=== PATIENT | female | born 1980 | race Caucasian/White ===

== ENCOUNTER 2020-10-30 05:25 | Inpatient (IN) | payer OTHER, SELFPAY ==
[~2020-10-30] VITALS: Ht 154.9 cm; Wt 88.5 kg
[2020-10-30] MEDS ORDERED: CEFAZOLIN 2 GM IVPB PREMIX 50 ML IV ONE (06:00)
[2020-10-30] MEDS ORDERED: LR 1,000 ML IV SCH ×2 (06:00→12:30)
[2020-10-30 06:20] LABS: BASOPHILS # (AUTO) 0.1 K/uL (0.0-0.2); BASOPHILS % (AUTO) 1.9 % (0.0-2.0); EOSINOPHILS % (AUTO) 0.8 % (0.0-4.0); HEMATOCRIT 34.5 % (36-48); HEMOGLOBIN 11.8 g/dL (12.0-16.0); LYMPHOCYTES # (AUTO) 1.3 K/uL (1.0-5.5); LYMPHOCYTES % (AUTO) 24.7 % (20.5-51.5); MEAN CORPUSCULAR HEMOGLOBIN 28 pg (27-31); MEAN CORPUSCULAR HGB CONC 34 % (32-36); MEAN CORPUSCULAR VOLUME 80 fL (79.0-98.0); MONOCYTES # (AUTO) 0.5 K/uL (0.0-1.0); MONOCYTES % (AUTO) 9.3 % (1.7-9.3); NEUTROPHILS # (AUTO) 3.2 K/uL (1.8-7.7); NEUTROPHILS % (AUTO) 63.3 % (40.0-70.0); PLATELET COUNT (AUTO) 257 K/uL (130-430); RED CELL DISTRIBUTION WIDTH 17.4 % (9.0-15.0); WHITE BLOOD COUNT (AUTO) 5.1 K/uL (4.8-10.8)
[2020-10-30 06:22] LABS: BILIRUBIN,URINE NEGATIVE (NEGATIVE); BLOOD, URINE NEGATIVE (NEGATIVE); COLOR,URINE YELLOW (YELLOW); GLUCOSE,URINE NEGATIVE (NEGATIVE); KETONES,URINE NEGATIVE (NEGATIVE); LEUKOCYTE ESTERASE ,URINE NEGATIVE (NEGATIVE); NITRITE, URINE NEGATIVE (NEGATIVE); PROTEIN URINE NEGATIVE (NEGATIVE); UROBILINOGEN,URINE 0.2 (0.2-1.0)
[2020-10-30 06:56] LABS: CLARITY/URINE CLEAR (CLEAR)
[2020-10-30 07:31] VITALS: BP_SYST 145
[2020-10-30] MEDS ORDERED: MORPHINE SULFATE 10MG/10ML PF AMP EP ONE (07:43)
[2020-10-30] MEDS ORDERED: ONDANSETRON HCL 4 MG/2 ML VIAL IVP ONE (07:43)
[2020-10-30] MEDS ORDERED: LR 1,000 ML IV.SOLN IV ONE (07:43)
[2020-10-30] MEDS ORDERED: OXYTOCIN 10 UNIT/ML VIAL IV ONE (07:43)
[2020-10-30] MEDS ORDERED: HEMABATE 250MCG/ML VIAL AMP IM ONE ×2 (07:43→08:16)
[2020-10-30] MEDS ORDERED: BUPIVACAINE /DEX PF 0.75% SPINAL 2 ML AMP INJ ONE (07:43)
[2020-10-30] MEDS ORDERED: WATER FOR IRRIGATION,STERILE 1,000 ML IRRIG.SOLN IR ONE (07:43)
[2020-10-30] MEDS ORDERED: METOCLOPRAMIDE HCL 10 MG/2 ML VIAL IVP ONE (07:43)
[2020-10-30] MEDS ORDERED: ePHEDrine sulfate 50 MG/ML VIAL IVP ONE (07:43)
[2020-10-30] MEDS ORDERED: DIPHENHYDRAMINE INJ 50 MG/ML VIAL IM PRN (08:45)
[2020-10-30] MEDS ORDERED: MORPHINE SULFATE 10MG/10ML PF AMP SP SCH (08:45)
[2020-10-30] MEDS ORDERED: NALOXONE HCL 0.4 MG/ML AMP (NARCAN) IVP PRN (08:45)
[2020-10-30] MEDS ORDERED: KETOROLAC TROMETHAMINE 60 MG/2 ML VIAL IM PRN (08:45)
[2020-10-30 09:07] VITALS: BP_SYST 152
[2020-10-30] MEDS: ONDANSETRON HCL 4 MG/2 ML VIAL IVP PRN ×2 (12:10→17:58)
[2020-10-30] MEDS ORDERED: OXYTOCIN/0.9 % SODIUM CHLORIDE 1,000 ML IV ONE (12:30)
[2020-10-30] MEDS ORDERED: LANOLIN 7 GM OINT. TP PRN (12:30)
[2020-10-30] MEDS ORDERED: BISACODYL 10 MG/SUPPOSITORY RC PRN (12:30)
[2020-10-30] MEDS: CEFAZOLIN 1 GM IVPB PREMIX 50 ML IV SCH ×2 (14:11→22:05)
[2020-10-30] MEDS ORDERED: MORPHINE 4 MG INJ. 4 MG/ML VIAL IVP PRN (22:00)
[2020-10-30] MEDS: LABETALOL HCL 100 MG TABLET PO SCH (22:06)
[2020-10-30] MEDS: DOCUSATE SODIUM 100 MG CAPSULE PO SCH (22:07)
[2020-10-30] MEDS: SIMETHICONE 80 MG TAB.CHEW PO PRN (22:07)
[2020-10-30] MEDS: SENNOSIDES/DOCUSATE SODIUM 1 TAB TABLET(SENOKOT-S) PO SCH (22:07)
[2020-10-31] MEDS: CEFAZOLIN 1 GM IVPB PREMIX 50 ML IV SCH (03:33)
[2020-10-31] MEDS: IBUPROFEN 600 MG TABLET PO SCH ×3 (06:00→18:07)
[2020-10-31 08:21] LABS: BASOPHILS % (AUTO) 0.3 % (0.0-2.0); EOSINOPHILS % (AUTO) 0.2 % (0.0-4.0); HEMATOCRIT 31.3 % (36-48); HEMOGLOBIN 10.5 g/dL (12.0-16.0); LYMPHOCYTES # (AUTO) 0.8 K/uL (1.0-5.5); LYMPHOCYTES % (AUTO) 11.5 % (20.5-51.5); MEAN CORPUSCULAR HEMOGLOBIN 27 pg (27-31); MEAN CORPUSCULAR HGB CONC 34 % (32-36); MEAN CORPUSCULAR VOLUME 81 fL (79.0-98.0); MONOCYTES # (AUTO) 0.4 K/uL (0.0-1.0); MONOCYTES % (AUTO) 6.4 % (1.7-9.3); NEUTROPHILS # (AUTO) 5.3 K/uL (1.8-7.7); NEUTROPHILS % (AUTO) 81.6 % (40.0-70.0); PLATELET COUNT (AUTO) 237 K/uL (130-430); RED BLOOD CELL COUNT(AUTO) 3.88 MIL/uL (4.2-6.2); RED CELL DISTRIBUTION WIDTH 17.2 % (9.0-15.0); WHITE BLOOD COUNT (AUTO) 6.6 K/uL (4.8-10.8)
[2020-10-31] MEDS: SIMETHICONE 80 MG TAB.CHEW PO PRN (12:11)
[2020-10-31] MEDS: DOCUSATE SODIUM 100 MG CAPSULE PO SCH ×2 (12:11→22:28)
[2020-10-31] MEDS ORDERED: OXYCODONE/ACETAMINOPHEN *10*mg/325 mg TABLET PO PRN (16:45)
[2020-10-31] MEDS ORDERED: OXYCODONE/ACETAMINOPHEN *10*mg/325 mg TABLET ONE (16:51)
[2020-10-31] MEDS: OXYCODONE/ACETAMINOPHEN 5-325 TABLET PO PRN (20:15)
[2020-10-31] MEDS: SENNOSIDES/DOCUSATE SODIUM 1 TAB TABLET(SENOKOT-S) PO SCH (22:29)
[2020-11-01] MEDS: LABETALOL HCL 100 MG TABLET PO SCH (05:00)
[2020-11-01] MEDS: OXYCODONE/ACETAMINOPHEN 5-325 TABLET PO PRN ×2 (05:02→09:50)
[2020-11-01] MEDS: IBUPROFEN 600 MG TABLET PO SCH ×3 (06:14→12:37)
[2020-11-01] MEDS: DOCUSATE SODIUM 100 MG CAPSULE PO SCH (08:04)
[2020-11-01] MEDS: SIMETHICONE 80 MG TAB.CHEW PO PRN ×2 (08:05→12:39)
== END 2020-11-01 14:26 | disposition home or self-care (01) | DRG 540 ==
LOC: SPU 05:25
PROVIDERS: ADMIT Obstetrics & Gynecology; ATTEND Obstetrics & Gynecology
PROC: 0DNW0ZZ Release Peritoneum, Open Approach (ICD-10-PCS; 2020-10-30)
PROC: 10D00Z1 Extraction of Products of Conception, Low, Open Approach (ICD-10-PCS; principal; 2020-10-30 07:30)
DX: O34.211 Maternal care for low transverse scar from previous cesarean delivery (principal); O10.92 Unspecified pre-existing hypertension complicating childbirth; N73.6 Female pelvic peritoneal adhesions (postinfective); O99.892 Other specified diseases and conditions complicating childbirth; O99.214 Obesity complicating childbirth; E66.01 Morbid (severe) obesity due to excess calories; Z20.822 Contact with and (suspected) exposure to COVID-19; Z3A.38 38 weeks gestation of pregnancy; Z37.0 Single live birth
CPT/HCPCS: 36415; 81003; 85025; 86592; 86886; 86900; 86901; 94760; J0690; J2274; J2405; J2590; J2765; J3490; J7120